=== PATIENT | male | born 2000 | race Hispanic/Latino ===

== ENCOUNTER 2021-08-17 19:45 | Emergency (ER) | payer SELFPAY ==
[2021-08-17] MEDS ORDERED: Proparacaine 0.5% Opth 15 ML BOT ONE (20:41)
[2021-08-17] MEDS ORDERED: Fluorescein Opthalmic Strip ONE (20:42)
== END 2021-08-17 21:27 | disposition home or self-care (01) ==
LOC: ERS 19:45
DX: S09.90XA Unspecified injury of head, initial encounter (principal); W18.2XXA Fall in (into) shower or empty bathtub, initial encounter; Y93.E1 Activity, personal bathing and showering
CPT/HCPCS: 99283